=== PATIENT | male | born 1995 | race Caucasian/White ===

== ENCOUNTER 2022-04-28 17:51 | Emergency (ER) | payer SELFPAY ==
[~2022-04-28] VITALS: Ht 167.6 cm; Wt 63.6 kg
[2022-04-28 17:54] VITALS: TEMP 98.7
[2022-04-28] MEDS ORDERED: CEPHALEXIN500 M1 PO (20:24)
[2022-04-28 20:40] VITALS: BP 141/87; PULSE 70
== END 2022-04-28 20:44 | disposition home or self-care (01) ==
LOC: COL.ER 17:51
DX: S01.81XA Laceration without foreign body of other part of head, initial encounter (principal); S01.01XA Laceration without foreign body of scalp, initial encounter; Z28.310 Unvaccinated for COVID-19; W29.3XXA Contact with powered garden and outdoor hand tools and machinery, initial encounter